=== PATIENT | male | born 1990 | race American Indian/Alaskan Native ===

== ENCOUNTER 2016-12-06 18:11 | Emergency (ER) | payer OTHER ==
[2016-12-06 18:21] VITALS: BP 112/67
[2016-12-06] MEDS ORDERED: MOTRIN PO ONE (20:34)
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
== END 2016-12-06 21:36 | disposition home or self-care (01) ==
LOC: ED 18:11
DX: S39.012A Strain of muscle, fascia and tendon of lower back, initial encounter (principal); V49.49XA Driver injured in collision with other motor vehicles in traffic accident, initial encounter; Y93.9 Activity, unspecified; Y92.9 Unspecified place or not applicable; Y99.9 Unspecified external cause status
CPT/HCPCS: 99282

== ENCOUNTER 2017-01-19 09:11 | Emergency (ER) | payer OTHER ==
[2017-01-19 09:26] VITALS: BP 108/65
[2017-01-19] MEDS ORDERED: MOTRIN PO ONE (12:24)
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
== END 2017-01-19 14:00 | disposition home or self-care (01) ==
LOC: ED 09:11
DX: M43.6 Torticollis (principal); V49.49XA Driver injured in collision with other motor vehicles in traffic accident, initial encounter; Y93.9 Activity, unspecified; Y92.9 Unspecified place or not applicable; Y99.9 Unspecified external cause status; J45.909 Unspecified asthma, uncomplicated; F17.200 Nicotine dependence, unspecified, uncomplicated
CPT/HCPCS: 72040; 72100